=== PATIENT | female | born 1970 | race Caucasian/White ===

== ENCOUNTER 2017-05-31 09:35 | Outpatient (CLI) | payer OTHER ==
[2017-05-31 13:12] LABS: BASOPHILS % (AUTO) 0.7 %; EOSINOPHILS # (AUTO) 0.1 10^3/uL (0.0-0.7); EOSINOPHILS % (AUTO) 1.5 %; HGB - HEMOGLOBIN 14.9 g/dL (12.0-16.0); LYMPHOCYTES # (AUTO) 2.4 10^3/uL (1.5-3.5); LYMPHOCYTES % (AUTO) 41.5 %; MEAN CORPUSCULAR HEMOGLOBIN 31.2 pg (27.0-31.0); MEAN CORPUSCULAR HGB CONC 34.7 g/dL (32.0-36.0); MEAN PLATELET VOLUME 9.2 fL (7.9-10.8); MONOCYTES # (AUTO) 0.6 10^3/uL (0.0-1.0); MONOCYTES % (AUTO) 10.1 %; NEUTROPHILS # (AUTO) 2.7 10^3/uL (1.5-6.6); NEUTROPHILS % (AUTO) 46.2 %; RED BLOOD COUNT 4.78 10^6/uL (4.20-5.40); RED CELL DISTRIBUTION WIDTH 13.2 % (12.0-15.0); UNCORRECTED WHITE BLOOD COUNT 5.9 x10^3/uL; WHITE BLOOD COUNT 5.9 x10^3/uL (4.8-10.8)
[2017-05-31 14:05] LABS: ALBUMIN/GLOBULIN RATIO 1.2 (1.0-2.2); BILIRUBIN,TOTAL 0.5 mg/dL (0.2-1.0); BUN - BLOOD UREA NITROGEN 15 mg/dL (6-20); CARBON DIOXIDE - CO2 28 mmol/L (21-32); CHLORIDE 101 mmol/L (101-111); CHOL/HDL RATIO 6.3 (<4.4); CHOLESTEROL 221 mg/dL; CREATININE 0.8 mg/dL (0.4-1.0); GFR - MDRD 77 (>89); GLUCOSE 97 mg/dL (70-100); HDL CHOLESTEROL 35 mg/dL; POTASSIUM 4.1 mmol/L (3.5-5.0); SODIUM 135 mmol/L (135-145); TOTAL PROTEIN 7.4 g/dL (6.7-8.2); TRIGLYCERIDES 236 mg/dL; VLDL CHOLESTEROL 47 mg/dL
[2017-05-31 14:06] LABS: THYROID STIMULATING HORMONE < 0.08 uIU/mL (0.34-5.60)
== END 2017-05-31 09:36 | disposition home or self-care (01) ==
LOC: LAB.WCP 09:35
PROVIDERS: ATTEND Physician Assistant Medical
DX: Z00.00 Encounter for general adult medical examination without abnormal findings (principal)
CPT/HCPCS: 36415; 80050; 80061; 84439

== ENCOUNTER 2017-05-31 10:04 | Outpatient (CLI) | payer OTHER ==
--- NOTE | 2017-06-04 13:02 | Mammography Report ---
DIGITAL SCREENING MAMMOGRAM: 05/31/2017 FINDINGS: The patient will need to return for additional imaging due to technical factors. We will contact the patient to schedule their return. IMPRESSION: Incomplete. RECOMMENDATION: Additional imaging. Birads Category: 0 - Incomplete. STANDARD QUALIFYING STATEMENTS 1. This examination was reviewed with the aid of Computer-Aided Detection (CAD). 2. A negative or benign imaging report should not delay biopsy if clinically suspicious findings are present. Consider surgical consultation if warranted. More than 5% of cancers are not identified by i maging. 3. Dense breasts may obscure an underlying neoplasm. JOB #: [id number] EXT JOB #:[id number]
== END 2017-05-31 10:05 | disposition home or self-care (01) ==
LOC: DI.N 10:04
PROVIDERS: ATTEND Physician Assistant Medical
DX: Z12.31 Encounter for screening mammogram for malignant neoplasm of breast (principal)
CPT/HCPCS: 77067

== ENCOUNTER 2017-07-05 10:46 | Outpatient (CLI) | payer OTHER ==
--- NOTE | 2017-07-21 13:02 | Mammography Report ---
REVISED: REPORT ORIGINALLY SIGNED ON 06/04/2017 @1338; RELEASED 07/05/2017 @ 1557; ADDENDUM 07/05/2017, RELEASED 07/06/2017 @ 0810. REPORT AND ADDENDUM MOVED TO [facility] [id number] ON 07/21/2017 [facility] EXAM: [id number] [facility] ([id number]) DIGITAL SCREENING MAMMOGRAM: 05/31/2017 FINDINGS: The patient will need to return for additional imaging due to technical factors. We will contact the patient to schedule their return. IMPRESSION: Incomplete. RECOMMENDATION: Additional imaging. Birads Category: 0 - Incomplete. STANDARD QUALIFYING STATEMENTS 1. This examination was reviewed with the aid of Computer-Aided Detection (CAD) . 2. A negative or benign imaging report should not delay biopsy if clinically suspicious findings are present. Consider surgical consultation if warranted. More than 5% of cancers are not identified by imaging. 3. Dense breasts may obscure an underlying neoplasm. JOB #: [id number] EXT JOB #: [id number] Lpn Rn Hospice: [place] Radiologist: Wili Londono MD Releasing Radiologist: Wili Londono MD Released Date Time: 07/05/171556 cc: Mary Ellen Wynne PA-C ADDENDUM REVISED: THIS REPORT WAS ORIGINALLY SIGNED ON 06/04/2017 @ 1338. EXAM CODE REVISED ON 07/05/2017. ADDENDUM: The patient initially presented on 05/31/2017, and returned on 2016 for additional projections due to technical factors. COMPARISON: 06/27/2015 TECHNIQUE: Routine CC and MLO projections were obtained of the breasts as well as bilateral laterally exaggerated craniocaudal views. FINDINGS: The breasts again demonstrate heterogeneously dense fibroglandular parenchyma bilaterally. Punctate, typically benign calcifications are present. No suspicious masses, clustered microcalcifications, or regions of architectural distortion are identified. IMPRESSION: BENIGN FINDINGS. RECOMMENDATION: Routine annual screening unless otherwise clinically indicated. BIRADS CATEGORY 2 - BENIGN FINDINGS. STANDARD QUALIFYING STATEMENTS 1. This examination was reviewed with the aid of Computer-Aided Detection (CAD). 2. A negative or benign imaging report should not delay biopsy if clinically suspicious findings are present. Consider surgical consultation if warranted. More than 5% of cancers are not identified by imaging. 3. Dense breasts may obscure an underlying neoplasm. Addendum Lpn Rn Hospice: MARIAH Addendum [place] Radiologist: Wili Londono MD Addendum Releasing Radiologist: Wili Londono MD Addendum Released Date Time: 07/06/17 0810 MTDD
--- NOTE | 2017-07-21 13:07 | Mammography Report ---
EXAM: [id number] [facility] ([id number]) REVISED: REPORT ORIGINALLY SIGNED ON 06/04/2017 @1338; RELEASED 07/05/2017 @ 1557; ADDENDUM 07/05/2017, RELEASED 07/06/2017 @ 0810. REPORT & ADDENDUM MOVED TO [facility] [id number] ON 07/21/2017 jll EXAM: [id number] [facility] ([id number]) DIGITAL SCREENING MAMMOGRAM: 05/31/2017 FINDINGS: The patient will need to return for additional imaging due to technical factors. We will contact the patient to schedule their return. IMPRESSION: Incomplete. RECOMMENDATION: Additional imaging. Birads Category: 0 - Incomplete. STANDARD QUALIFYING STATEMENTS 1. This examination was reviewed with the aid of Computer-Aided Detection (CAD) . 2. A negative or benign imaging report should not delay biopsy if clinically suspicious findings are present. Consider surgical consultation if warranted. More than 5% of cancers are not identified by imaging. 3. Dense breasts may obscure an underlying neoplasm. JOB #: [id number] EXT JOB #: [id number] Product Support Technician: [place] Radiologist: Wili Londono MD Releasing Radiologist: Wili Londono MD Released Date Time: 07/05/17 1557 cc: Mary Ellen Wynne PA-C ADDENDUM REVISED: THIS REPORT WAS ORIGINALLY SIGNED ON 06/04/2017 @ 1338. EXAM CODE REVISED ON 07/05/2017. ADDENDUM: The patient initially presented on 05/31/2017, and returned on 2016 for additional projections due to technical factors. COMPARISON: 06/27/2015 TECHNIQUE: Routine CC and MLO projections were obtained of the breasts as well as bilateral laterally exaggerated craniocaudal views. FINDINGS: The breasts again demonstrate heterogeneously dense fibroglandular parenchyma bilaterally. Punctate, typically benign calcifications are present. No suspicious masses, clustered microcalcifications, or regions of architectural distortion are identified. IMPRESSION: BENIGN FINDINGS. RECOMMENDATION: Routine annual screening unless otherwise clinically indicated. BIRADS CATEGORY 2 - BENIGN FINDINGS. STANDARD QUALIFYING STATEMENTS 1. This examination was reviewed with the aid of Computer-Aided Detection (CAD). 2. A negative or benign imaging report should not delay biopsy if clinically suspicious findings are present. Consider surgical consultation if warranted. More than 5% of cancers are not identified by imaging. 3. Dense breasts may obscure an underlying neoplasm. Addendum Product Support Technician: MARIAH Addendum [place] Radiologist: Wili Londono MD Addendum Releasing Radiologist: Wili Londono MD Addendum Released Date Time: 07/06/17 0810 MTDD
== END 2017-07-05 10:47 | disposition home or self-care (01) ==
LOC: DI 10:46
PROVIDERS: ATTEND Physician Assistant Medical
DX: Z12.31 Encounter for screening mammogram for malignant neoplasm of breast (principal)
CPT/HCPCS: 77067

== ENCOUNTER 2018-08-03 13:28 | Outpatient (CLI) | payer OTHER ==
--- NOTE | 2018-08-04 09:59 | Mammography Report ---
Reason: SCREENING MAMMO Procedure Date: 08/03/2018 Accession Number: [id number] Procedure: MGN - Screening Mammo Dig Bilat CPT Code: FULL RESULT: EXAM: Screening Mammo Dig Bilat DATE: 08/03/2018 1:49 PM CLINICAL HISTORY: 48 year-old nulliparous female for screening. TECHNIQUE: Bilateral CC, laterally exaggerated CC, MLO views were obtained. COMPARISON: 05/31/2017, 06/27/2015. FINDINGS: The breasts demonstrate heterogeneously dense fibroglandular parenchyma bilaterally. No suspicious masses, clustered microcalcifications, or regions of architectural distortion are identified. IMPRESSION: Negative examination RECOMMENDATION: Routine annual screening unless otherwise clinically indicated. BIRADS CATEGORY 1: Negative STANDARD QUALIFYING STATEMENTS: 1. This examination was reviewed with the aid of Computer-Aided Detection (CAD). 2. A negative or benign imaging report should not delay biopsy if clinically suspicious findings are present. Consider surgical consultation if warrented. More than 5% of cancers are not identified by imaging. 3. Dense breasts may obscure an underlying neoplasm. 4. This examination was reviewed without the aid of 3D breast imaging (tomosynthesis).
== END 2018-08-03 13:29 | disposition home or self-care (01) ==
LOC: DI.N 13:28
DX: Z12.31 Encounter for screening mammogram for malignant neoplasm of breast (principal)
CPT/HCPCS: 77067

== ENCOUNTER 2021-02-17 08:00 | Outpatient (CLI) | payer OTHER ==
[2021-02-17 12:15] LABS: BASOPHILS % (AUTO) 0.4 %; EOSINOPHILS % (AUTO) 0.7 %; HCT - HEMATOCRIT 41.8 % (37.0-47.0); HGB - HEMOGLOBIN 13.8 g/dL (12.0-16.0); LYMPHOCYTES % (AUTO) 20.3 %; MEAN CORPUSCULAR HEMOGLOBIN 31.8 pg (27.0-31.0); MEAN CORPUSCULAR VOLUME 96.3 fL (81.0-99.0); PLT - PLATELET COUNT 208 10^3/uL (130-450); RED BLOOD COUNT 4.34 10^6/uL (4.20-5.40); RED CELL DISTRIBUTION WIDTH 13.2 % (12.0-15.0); WHITE BLOOD COUNT 11.3 x10^3/uL (4.8-10.8)
[2021-02-17 12:42] LABS: ALBUMIN/GLOBULIN RATIO 1.3 (1.0-2.2); ALKALINE PHOSPHATASE 50 IU/L (42-121); ALT ALANINE AMINOTRANSFERASE 19 IU/L (10-60); AST ASPARTATE AMINOTRANSFERASE 18 IU/L (10-42); BILIRUBIN,TOTAL 0.7 mg/dL (0.2-1.0); BUN - BLOOD UREA NITROGEN 8 mg/dL (6-20); CALCIUM 8.7 mg/dL (8.5-10.3); CARBON DIOXIDE - CO2 25 mmol/L (21-32); CHLORIDE 103 mmol/L (101-111); CHOLESTEROL 169 mg/dL; CREATININE 0.8 mg/dL (0.4-1.0); GFR - MDRD 76 (>89); GLUCOSE 101 mg/dL (70-100); HDL CHOLESTEROL 42 mg/dL; LDL CHOLESTEROL,CALCULATED 105 mg/dL; LDL/HDL RATIO 2.5 (<4.4); SODIUM 137 mmol/L (135-145); TOTAL PROTEIN 7.1 g/dL (6.7-8.2); TRIGLYCERIDES 108 mg/dL; VLDL CHOLESTEROL 22 mg/dL
[2021-02-17 12:44] LABS: THYROID STIMULATING HORMONE 0.72 uIU/mL (0.34-5.60)
[2021-02-17 13:10] LABS: ABNORMAL LYMPHS % (MANUAL) 0 %
[2021-02-17 13:15] LABS: BAND NEUTROPHILS % (MANUAL) 14 %; LYMPHOCYTES # (MANUAL) 2.5 10^3/uL (1.5-3.5); LYMPHOCYTES % (MANUAL) 21 %; MONOCYTES # (MANUAL) 1.8 10^3/uL (0.0-1.0); NUCLEATED RBC (MANUAL) 0 %; REACTIVE LYMPHS % (MANUAL) 1 %
[2021-02-17 13:16] LABS: DIFFERENTIAL COMMENT MANUAL DIFFERENTIAL
== END 2021-02-17 23:59 | disposition home or self-care (01) ==
LOC: LAB.WCP 08:00
PROVIDERS: ATTEND Physician Assistant Medical
DX: Z00.00 Encounter for general adult medical examination without abnormal findings (principal); E05.90 Thyrotoxicosis, unspecified without thyrotoxic crisis or storm
CPT/HCPCS: 36415; 80050; 80061; 83721

== ENCOUNTER 2021-05-31 20:53 | Emergency (ER) | payer OTHER ==
[2021-05-31] MEDS ORDERED: ROPIVACAINE 0.5% PF 20 ML VIAL SUBQ STA (20:57)
--- NOTE | 2021-05-31 20:58 | ED Physician Documentation ---
PD HPI HEENT - Stated complaint Stated Complaint: MOUTH PX - History obtained from History obtained from: Patient - Additional information Additional information: I had seen her just prior to arrival, severe dental pain, returns because dental block was ineffective. Review of Systems Constitutional: reports: Reviewed and negative Nose: reports: Reviewed and negative Throat: reports: Dental pain / toothache Cardiac: reports: Reviewed and negative PD PAST MEDICAL HISTORY - Past Medical History Cardiovascular: None Respiratory: None Neuro: None Endocrine/Autoimmune: None GI: None BANK BOSS: None : Incontinence HEENT: Dental implants Psych: Anxiety Musculoskeletal: Osteoarthritis Derm: None - Past Surgical History Past Surgical History: Yes /BANK BOSS: LEEP (Cervical surgery) HEENT: Tonsil/Adenoidectomy - Present Medications Home Medications: Ambulatory Orders Medication Instructions Recorded Confirmed Biotin 5,000 mcg SL DAILY 01/18/19 01/18/19 Black Currant Oil 140 units PO DAILY 01/18/19 01/18/19 Levothyroxine [Synthroid] 75 mcg PO QDAC 01/18/19 01/18/19 Metronidazole 1% Gel [Metrogel] 1 applic TOP PRN PRN 01/18/19 01/18/19 [place]-3 Fatty Acids/Fish Oil 1 cap PO DAILY 01/18/19 01/18/19 [[place]-3 Fish Oil 1,000 mg Sfgl] Red Yeast Rice 1,200 mg PO DAILY 01/18/19 01/18/19 Spironolactone 50 mg PO BID 01/18/19 01/18/19 Turmeric Root Extract [Turmeric 1 cap PO DAILY 01/18/19 01/18/19 Curcumin] Ubidecarenone/Vit E Acet [Co Q-10 100 mg PO DAILY 01/18/19 01/18/19 100 mg Softgel] Venlafaxine HCl [Venlafaxine HCl 150 mg PO DAILY 01/18/19 01/18/19 ER] - Allergies Allergies/Adverse Reactions: Allergies Allergy/AdvReac Type Severity Reaction Status Date / Time Penicillins Allergy Unknown Verified 05/31/21 19:20 - Social History Does the pt smoke?: No Smoking Status: Former smoker Does the pt drink ETOH?: Yes Does the pt have substance abuse?: No - Immunizations Immunizations are current?: Yes - POLST Patient has POLST: No PD ED PE NORMAL - Vitals Vital signs reviewed: Yes - General General: Alert and oriented X 3, No acute distress - Neuro Neuro: Alert and oriented X 3, Normal speech - Psych Psych: Normal mood, Normal affect Results - Vitals Vitals: Vital Signs - 24 hr 05/31/21 20:55 Temperature 36.6 C Heart Rate 63 Respiratory 22 Rate Blood Pressure 169/92 H O2 Saturation 99 Oxygen O2 Source Room air Procedures - Regional nerve block Nerve block site: Inferior alveolar Right / left: Right Nerve block anesthesia: Marcaine 0.25% PD MEDICAL DECISION MAKING - ED course ED course: Again the inferior alveolar block was ineffective, as such she was given some IM Toradol and Dilaudid. Departure - Departure Disposition: Home, Self Care Clinical Impression: Dental abscess Condition: Good Record reviewed to determine appropriate education?: Yes Instructions: ED Tooth Pain Comments: Oxycodone as needed, follow-up with your dentist Wednesday. Return if worsening. Continue antibiotic that your dentist gave you.
[2021-05-31 21:01] VITALS: BP 169/92
[2021-05-31] MEDS ORDERED: HYDROmorphone 1 MG/ML CARPUJECT IM STA (21:18)
[2021-05-31] MEDS ORDERED: KETOROLAC 60 MG/2 ML VIAL IM STA (21:18)
[2021-05-31] MEDS ORDERED: ONDANSETRON ODT 4 MG TABLET TL STA (21:18)
== END 2021-05-31 21:54 | disposition home or self-care (01) ==
LOC: ED 20:53
DX: K04.7 Periapical abscess without sinus (principal); Z87.891 Personal history of nicotine dependence
CPT/HCPCS: 64400; 96372; 99283; 99284; J1170; Q0162

== ENCOUNTER 2021-06-01 07:36 | Emergency (ER) | payer OTHER ==
--- NOTE | 2021-06-01 07:51 | ED Physician Documentation ---
PD HPI HEENT - Stated complaint Stated Complaint: TOOTH PX - Chief complaint Chief Complaint: Heent - History obtained from History obtained from: Patient - History of Present Illness Timing - onset: How many weeks ago (1) Timing - duration: Days Timing - details: Gradual onset, Still present Location: Tooth (right lower 2nd molar.) Associated symptoms: No: Fever, Congestion, Facial swelling Recently seen: Emergency Dept (seen yesterday with attempted nerve block that did not have numbing effect so given IM meds. Pain back today. 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 (Cervical surgery) HEENT: Tonsil/Adenoidectomy - Present Medications Home Medications: Ambulatory Orders Medication Instructions Recorded Confirmed Biotin 5,000 mcg SL DAILY 01/18/19 06/01/21 Levothyroxine [Synthroid] 75 mcg PO QDAC 01/18/19 06/01/21 Metronidazole 1% Gel [Metrogel] 1 applic TOP PRN PRN 01/18/19 06/01/21 [place]-3 Fatty Acids/Fish Oil 1 cap PO DAILY 01/18/19 06/01/21 [[place]-3 Fish Oil 1,000 mg Sfgl] Red Yeast Rice 1,200 mg PO DAILY 01/18/19 06/01/21 Spironolactone 50 mg PO BID 01/18/19 06/01/21 Turmeric Root Extract [Turmeric 1 cap PO DAILY 01/18/19 06/01/21 Curcumin] Ubidecarenone/Vit E Acet [Co Q-10 100 mg PO DAILY 01/18/19 06/01/21 100 mg Softgel] Venlafaxine HCl [Venlafaxine HCl 150 mg PO DAILY 01/18/19 06/01/21 ER] Cefdinir 300 mg PO BID 06/01/21 06/01/21 Cholecalciferol [Vitamin D3] 25 mcg PO DAILY 06/01/21 06/01/21 oxyCODONE/ACET 5/325 [Percocet 5 1 each PO Q4HR PRN 06/01/21 06/01/21 mg/325 mg] - Allergies Allergies/Adverse Reactions: Allergies Allergy/AdvReac Type Severity Reaction Status Date / Time Penicillins Allergy Unknown Verified 06/01/21 07:42 - Social History Does the pt smoke?: No Smoking Status: Former smoker Does the pt drink ETOH?: Yes Does the pt have substance abuse?: No - Immunizations Immunizations are current?: Yes - POLST Patient has POLST: No PD ED PE NORMAL - Vitals Vital signs reviewed: Yes - General General: Alert and oriented X 3, Well developed/nourished, Other (does appear in pain, but is pleasant and interacts well. ) - HEENT HEENT: Moist mucous membranes, Pharynx benign, Other (right lower 2nd molar with some tenderness to percussion. No obvious gum swelling nor fluctuance. No neck adenopathy.) - Neck Neck: Supple, no meningeal sign, No adenopathy - Cardiac Cardiac: RRR, No murmur - Respiratory Respiratory: Clear bilaterally - Derm Derm: Normal color, Warm and dry, No rash - Neuro Neuro: Alert and oriented X 3, No motor deficit, No sensory deficit, Normal speech Results - Vitals Vitals: Vital Signs - 24 hr 06/01/21 06/01/21 07:40 08:30 Temperature 36.7 C 36.8 C Heart Rate 65 59 L Respiratory 16 20 Rate Blood Pressure 127/79 118/75 O2 Saturation 96 96 Oxygen O2 Source Room air PD MEDICAL DECISION MAKING - ED course Complexity details: considered differential (dental pain/infection. Dental block did not work yesterday but she would like to try again. Inferior alveolar block with Bupivocaine without any numbning effect of teeth nor gums. Gave IM pain meds after that. ), d/w patient Departure - Departure Disposition: 01 Home, Self Care Clinical Impression: Pain, dental Condition: Stable Record reviewed to determine appropriate education?: Yes Instructions: ED Tooth Pain Follow-Up: Mary Ellen Wynne PA-C [Primary Care Provider] - MERRITT MONTE DDS [Physician No Access] - Comments: Hopefully the medication now will help take the edge off until tomorrow. Continue with your oxycodone every 4-6 hours if needed. Combine with it some ibuprofen 600 mg 3 times a day with food. You can use Tylenol 650 mg every 6 hours instead of the oxycodone if that is sufficient. See dentist tomorrow as planned. Continue the antibiotic. Discharge Date/Time: 06/01/21 08:40
[2021-06-01] MEDS ORDERED: KETOROLAC 30 MG/ML VIAL IM STA (08:05)
[2021-06-01] MEDS ORDERED: ONDANSETRON ODT 4 MG TABLET TL STA (08:05)
[2021-06-01] MEDS ORDERED: HYDROmorphone 1 MG/ML CARPUJECT IM STA (08:06)
[2021-06-01 08:31] VITALS: BP 118/75
== END 2021-06-01 08:40 | disposition home or self-care (01) ==
LOC: ED 07:36
DX: K08.89 Other specified disorders of teeth and supporting structures (principal); Z87.891 Personal history of nicotine dependence
CPT/HCPCS: 64400; 96372; 99283; J1170; Q0162

== ENCOUNTER 2021-06-17 06:58 | Day surgery (SDC) | payer OTHER ==
[2021-06-17] MEDS ORDERED: LACTATED RINGERS 1,000 ML IV ONE ×2 (07:02→08:34)
--- NOTE | 2021-06-17 07:39 | ANESTHESIA ---
Pre-Anesthesia VS, & Labs - Diagnosis Screening exam - Procedure Colonoscopy Vital Signs: Temp Pulse Resp BP Pulse Ox 36 C L 85 14 136/99 H 95 06/17/21 07:02 06/17/21 07:02 06/17/21 07:02 06/17/21 07:02 06/17/21 07:02 Height: 5 ft 5 in Weight (kg): 73.7 kg Body Mass Index: 27.0 BMI Classification: Overweight - NPO >8 hours - Is Patient ?: No Home Medications and Allergies Home Medications: Ambulatory Orders Krill Oil/Hyaluronic/Astaxanth [Move Free Ultra Pep Jnt Plus] 1 cap PO DAILY 06/11/21 Multivitamin 1 each PO DAILY 06/11/21 Psyllium Husk [Fiber] 0.52 gm PO DAILY 06/11/21 Levothyroxine [Synthroid] 75 mcg PO QDAC 01/18/19 [place]-3 Fatty Acids/Fish Oil [Pep-3 Fish Oil 1,000 mg Sfgl] 1 cap PO DAILY 01/18/19 Red Yeast Rice 1,200 mg PO DAILY 01/18/19 Spironolactone 100 mg PO DAILY 01/18/19 Turmeric Root Extract [Turmeric Curcumin] 1 cap PO DAILY 01/18/19 Ubidecarenone/Vit E Acet [Co Q-10 100 mg Softgel] 100 mg PO DAILY 01/18/19 Venlafaxine HCl [Venlafaxine HCl ER] 150 mg PO DAILY 01/18/19 Cholecalciferol [Vitamin D3] 25 mcg PO DAILY 06/01/21 Krill Oil/Hyaluronic/Astaxanth [Move Free Ultra Pep Jnt Plus] 1 cap PO DAILY 06/11/21 Multivitamin 1 each PO DAILY 06/11/21 Psyllium Husk [Fiber] 0.52 gm PO DAILY 06/11/21 Allergies/Adverse Reactions: Allergies Allergy/AdvReac Type Severity Reaction Status Date / Time Penicillins Allergy Unknown Verified 06/01/21 07:42 Anes History & Medical History - Anesthetic History Anesthesia Complications: reports: No previous complications - Medical History Cardiovascular: reports: None Pulmonary: reports: None Gastrointestinal: reports: None Urinary: reports: None Neuro: reports: None Musculoskeletal: reports: Osteoarthritis, Chronic back pain Endocrine/Autoimmune: reports: HyPOthyroidism Blood Disorders: reports: None Skin: reports: Eczema Smoking Status: Former smoker (quit 5 years ago) Psychosocial: reports: Anxiety, Alcohol (glass of wine daily) History of Cancer?: No - Surgical History Eyes Ears Nose Throat (EENT): reports: Tonsil/Adenoidectomy Gynecologic: reports: LEEP (Cervical surgery) Orthopedic: reports: Other Exam General: Alert, Oriented x3, Cooperative, No acute distress Dental: Poor dentition (missing front) Mouth Openin Fingerbreadth Neck Mobility: Normal Mallampati classification: I Thyromental Distance: 4-6 cm Mental/Cognitive Status: Alert/Oriented X3, Normal for patient Plan Anesthesia Type: Total IV Consent for Procedure(s) Verified and Reviewed: Yes Code Status: Attempt Resuscitation ASA classification: 2-Mild systemic disease Is this case an emergency?: No
[2021-06-17] MEDS ORDERED: PROPOFOL 500 MG/50 ML 500 MG/50 ML VIAL ONE (08:02)
[2021-06-17 09:08] VITALS: BP 120/86
--- NOTE | 2021-06-17 12:41 | ANESTHESIA POST OP EVALUATION ---
Anesthesia Post Eval - Post Anesthesia Eval Vitals: Last Vital Signs Temp 37.1 C 06/17/21 08:55 Pulse 72 06/17/21 08:55 Resp 12 06/17/21 08:55 BP 120/86 H 06/17/21 08:55 Pulse Ox 99 06/17/21 08:55 CV Function Including HR & BP: Stable Pain Control: Satisfactory Nausea & Vomiting: Negative Mental Status: Baseline Respiratory Status: Airway Patent Hydration Status: Satisfactory Anesthesia Complications: None
== END 2021-06-17 06:59 | disposition home or self-care (01) ==
LOC: SDS 06:58
PROVIDERS: ATTEND Surgery
DX: Z12.11 Encounter for screening for malignant neoplasm of colon (principal); K64.8 Other hemorrhoids; K64.4 Residual hemorrhoidal skin tags; F41.9 Anxiety disorder, unspecified; Z83.71 Family history of colonic polyps
CPT/HCPCS: 45378; J7120